=== PATIENT | female | born 1940 | race Caucasian/White ===

== ENCOUNTER 2016-12-02 08:28 | Outpatient (CLI) | payer MEDICARE ==
[~2016-12-02] VITALS: Ht 162.6 cm; Wt 90.7 kg
[2016-12-02] MEDS ORDERED: BUPIVACAINE 0.25% 30 ML (SENSORCAINE) VIAL ONE (08:57)
[2016-12-02] MEDS ORDERED: TRIAMCINOLONE ACET (KENALOG-40) 40 MG/ML 1 ML VIAL ONE (08:57)
[2016-12-02 09:12] VITALS: BP 155/87
[2016-12-02 09:45] VITALS: BP 172/90
--- NOTE | 2016-12-02 12:27 | Pain Medicine-Procedure ---
Procedure Pre-Op/Post-Op Diagnosis Diagnosis: disc disorder with radiculopathy, lumbar Indications for Operation Low back pain Attending Surgeon Talat Procedure Date of Service: Dec 02, 2016 PROCEDURE: Caudal Epidural Steroid Injection with catheter under Flouroscopic Guidance PROCEDURE NOTE: After obtaining written informed consent patient was taken to the procedure room. Vital signs were monitored through out the procedure. A time out was performed. The patient was placed in the prone position on fluoroscopy table. The lower back above the caudal space was prepped with chloraprep and draped in the usual sterile fashion. The skin over the sacral hiatus was identified under fluoroscopic guidance and infiltrated with 1% lidocaine for local anesthesia via 25 gauge needle. An 17-gauge epimed needle was used to access the epidural space under fluoroscopic guidance and was then advanced into the epidural space under fluoroscopic guidance in the AP view. The epimed catheter was then advanced under flourospopic guidance to the L5-S1 interspace. There was no paresthesia with catheter placement. After negative aspiration 1 cc of the contrast dye was injected through the needle with good spread of the medication in the epidural space at the appropriate levels. Again, after negative aspiration, 80 mg of kenalog with 2 cc of 0.25% marcaine and 2 mL's of preservative free normal saline was injected. There was no evidence of CSF, paresthesia or heme during the procedure. The catheter and needle were withdrawn as a unit and the tip was noted to be intact upon removal. Skin was cleaned and a sterile dressing was applied. Following the procedure the patient's vital signs were stable. The patient was discharged home after a brief period of observation with no new neuologic deficits. Complications None MOISES RAMESH MD Dec 02, 2016 12:27 pm
== END 2016-12-02 09:47 | disposition home or self-care (01) ==
LOC: CARD 08:28
PROVIDERS: ATTEND Pain Medicine Pain Medicine
DX: M51.16 Intervertebral disc disorders with radiculopathy, lumbar region (principal); M53.3 Sacrococcygeal disorders, not elsewhere classified; M96.1 Postlaminectomy syndrome, not elsewhere classified; Z79.899 Other long term (current) drug therapy
CPT/HCPCS: 62323